=== PATIENT | male | born 1975 | race Caucasian/White ===

== ENCOUNTER 2017-12-21 04:29 | Emergency (ER) | payer MEDICAID ==
[2017-12-21 04:35] VITALS: BP 117/96; RESP 18; TEMP 97.5; O2SAT 96
--- NOTE | 2017-12-21 04:43 | EDPHY ---
H & P Stated Complaint: pimple behind the rt ear since last night HPI/ROS: Chief Complaint: Bump behind right ear HPI: 42-year-old male with a history of HIV and meth abuse noticed a small bump behind his right ear earlier tonight. It is not painful. Is not red. He has not had any fevers or chills. No headache. No vision or hearing changes. He does admit to using meth yesterday. No chest pain or shortness of breath. No palpitations. ROS: 10 point Review of Systems is negative except as noted in the HPI. PMH: HIV, meth use Social History: [No] smoking, [no] alcohol, occasional meth use Family History: [non-contributory] Physical Exam: General: Awake, alert, no acute distress HEENT. Patient has a small 5 mm easily mobile mass beneath the skin behind his right ear. There is no fluctuance. Is not erythematous. Is not tender. Consistent with a small benign cyst. Neck: No lymphadenopathy: Full range of motion without pain Skin: No rash - Personal History Current Tetanus/Diphtheria Vaccine: Yes Current Tetanus Diphtheria and Acellular Pertussis (TDAP): Yes Tetanus Vaccine Date: < 10 years - Medical/Surgical History Hx Asthma: No Hx Chronic Respiratory Disease: No Hx Diabetes: No Hx Cardiac Disease: No Hx Renal Disease: No Hx Cirrhosis: Yes Hx Alcoholism: No Hx HIV/AIDS: Yes Hx Splenectomy or Spleen Trauma: No Other PMH: hiv+, meth abuse, psoriasis - Social History Smoking Status: Current every day smoker Constitutional: Initial Vital Signs Temperature (C) 36.4 C 12/21/17 04:31 Respiratory Rate 18 12/21/17 04:31 Blood Pressure 117/96 H 12/21/17 04:31 O2 Sat (%) 96 12/21/17 04:31 O2 Delivery Mode Room Air Allergies/Adverse Reactions: No Known Allergies Allergy (Verified 09/18/16 00:13) Home Medications: Medication Instructions Recorded Tivicay 09/04/16 Truvada 100 mg-150 mg Tablet 09/04/16 Medical Decision Making ED Course/Re-evaluation: Patient has a benign cyst verses a enlarged lymph node behind his right ear. There are no signs of cellulitis or abscess. Patient does have a primary care physician that he follows. Will discharge with follow-up in several days, return for worsening. Departure - Departure Disposition: Home, Routine, Self-Care Clinical Impression: Lump Condition: Good Instructions: Ganglion Cysts (ED) Additional Instructions: Follow up with primary care physician in 2-3 days for re-evaluation. Return to the emergency department for increasing pain, redness, discharge from the site, fevers, chills, or any other concerns. Referrals: NONE *PRIMARY CARE P,. [Primary Care Provider] - As per Instructions
== END 2017-12-21 04:47 | disposition home or self-care (01) ==
DX: H93.8X1 Other specified disorders of right ear (principal); B20 Human immunodeficiency virus [HIV] disease; F17.200 Nicotine dependence, unspecified, uncomplicated

== ENCOUNTER 2018-02-09 05:00 | Emergency (ER) | payer MEDICAID ==
[2018-02-09 05:09] VITALS: BP 135/91; PULSE 99; RESP 18; TEMP 98.1; O2SAT 95
--- NOTE | 2018-02-09 05:31 | EDPHY ---
H & P Stated Complaint: L EAR REDNESS, SWELLING, DRAINAGE X 1 WEEK Time Seen by Provider: 02/09/18 05:10 HPI/ROS: HPI CHIEF COMPLAINT: Left ear redness and drainage HISTORY OF PRESENT ILLNESS: Patient is a 42-year-old male, he is HIV positive, states that he has undetectable viral load, however has been off his HIV medication recently for the past few weeks. Due to get a refill in 8 days. He presents emergency room with some swelling or redness to the left external ear specifically over the tragus is red and draining. No significant abscess visualized. No fever. Past Medical History: HIV Past Surgical History: Denies recent surgery Social History: Denies drugs alcohol tobacco products. Family History: Noncontributory ROS REVIEW OF SYSTEMS: A comprehensive 10 point review of systems is otherwise negative aside from elements mentioned in the history of present illness. Exam Constitutional appears well nontoxic no acute distress, triage nursing summary reviewed, vital signs reviewed, awake/alert. Eyes normal conjunctivae and sclera, EOMI, PERRLA. HENT left external ear: Shows redness and swelling of the left tragus. No abscess visualize. It is draining. Otherwise unremarkable external ear anatomy moist mucus membranes, no epistaxis, neck supple/ no meningismus, no raccoon eyes. Respiratory clear to auscultation bilaterally, normal breath sounds, no respiratory distress, no wheezing. Cardiovascular rate normal, regular rhythm, no murmur, no edema, distal pulses normal. Gastrointestinal soft, non-tender, no rebound, no guarding, normal bowel sounds, no distension, no pulsatile mass. Genitourinary no CVA tenderness. Musculoskeletal no midline vertebral tenderness, full range of motion, no calf swelling, no tenderness of extremities, no meningismus, good pulses, neurovascularly intact. Skin pink, warm, & dry, no rash, skin atraumatic. Neurologic awake, alert and oriented x 3, AAOx3, moves all 4 extremities equally, motor intact, sensory intact, CN II-XII intact, normal cerebellar, normal vision, normal speech. Psychiatric normal mood/affect. Heme/Lymph/Immune no lymphadenopathy. Differential Diagnosis: Includes but is not limited to in a particular order year cellulitis, MRSA infection, strep infection, tragus infection, abscess Medical Decision Making: Plan for this patient recommend warm compresses 4 times a day for 20 min. Will prescribe Keflex and Bactrim. Additionally I discussed return precautions with him. He understands return emergency room if he develops worsening pain, fever, swelling of the external ear, or an abscess forms. At this time there is no evidence of abscess. Just appears to be cellulitic. He understands watch this closely. If it is getting worse return immediately to the emergency room. I also recommend that he starts his antiviral as soon as possible. Source: Patient - Personal History Tetanus Vaccine Date: < 10 years - Medical/Surgical History Hx Asthma: No Hx Chronic Respiratory Disease: No Hx Diabetes: No Hx Cardiac Disease: No Hx Renal Disease: No Hx Cirrhosis: Yes Hx Alcoholism: No Hx HIV/AIDS: Yes Hx Splenectomy or Spleen Trauma: No Other PMH: hiv+, meth abuse, psoriasis - Social History Smoking Status: Heavy smoker Constitutional: Initial Vital Signs Temperature (C) 36.7 C 02/09/18 05:06 Heart Rate 99 02/09/18 05:06 Respiratory Rate 18 02/09/18 05:06 Blood Pressure 135/91 H 02/09/18 05:06 O2 Sat (%) 95 02/09/18 05:06 O2 Delivery Mode Room Air Allergies/Adverse Reactions: No Known Allergies Allergy (Verified 09/18/16 00:13) Home Medications: Medication Instructions Recorded Tivicay 09/04/16 Truvada 100 mg-150 mg Tablet 09/04/16 Cephalexin [Keflex] 500 mg PO Q6H #28 cap 02/09/18 Sulfamethox/Tmp 800/160 mg 1 tab PO BID@1000,2200 #14 tab 02/09/18 [Bactrim Ds] Departure - Departure Disposition: Home, Routine, Self-Care Clinical Impression: Cellulitis Qualifiers: Site of cellulitis: unspecified site Qualified Code(s): L03.90 - Cellulitis, unspecified Condition: Good Instructions: Cellulitis (ED) Additional Instructions: 1. Please take antibiotics as prescribed. 2. Return emergency room if you have worsening swelling, redness, pain. 3. Warm compresses 4 times a day for 20 min. Referrals: NONE *PRIMARY CARE P,. [Primary Care Provider] - As per Instructions Prescriptions: Cephalexin [Keflex] 500 mg PO Q6H #28 cap Sulfamethox/Tmp 800/160 mg [Bactrim Ds] 1 tab PO BID@1000,2200 #14 tab
[2018-02-09] MEDS ORDERED: CEPHALEXIN 500 MG CAP PO ONE (05:38)
[2018-02-09] MEDS ORDERED: SULFAMETHOX/TMP 800/160 MG 1 TAB PO ONE (05:38)
== END 2018-02-09 05:50 | disposition home or self-care (01) ==
DX: H60.12 Cellulitis of left external ear (principal); B20 Human immunodeficiency virus [HIV] disease; F17.200 Nicotine dependence, unspecified, uncomplicated